=== PATIENT | female | born 1970 | race Caucasian/White ===

== ENCOUNTER → 2018-02-23 | Outpatient (CLI) | payer OTHER ==
[~2018-02-23] MED LIST: ASCO10004 PO; CALC-680 PO; CHOL2000 PO; LACT1CAP11 PO; METO25TA91 PO
== END | disposition home or self-care (01) ==
LOC: CARD 09:10
PROVIDERS: ATTEND Specialist
DX: G45.9 Transient cerebral ischemic attack, unspecified (principal)
CPT/HCPCS: 95816

== ENCOUNTER 2020-11-05 14:41 | Outpatient (CLI) | payer OTHER ==
[~2020-11-05 14:41] MED LIST changes: +ASCO100018 PO; -ASCO10004 PO
[2020-11-05 15:34] LABS: MICROSCOPIC NOT IND
[2020-11-05 15:35] LABS: BASOPHILS % (AUTO) 0 % (0-1); EOSINOPHILS % (AUTO) 1 % (1-7); LYMPHOCYTES % (AUTO) 18 % (22-44); MEAN CORPUSCULAR HGB CONC 33.3 g/dL (32.4-35.8); MEAN PLATELET VOLUME 9.9 fL (7.4-10.4); MONOCYTES % (AUTO) 7 % (2-9); NEUTROPHILS % (AUTO) 74 % (42-75); PLATELET COUNT 282 x10^3/uL (130-400); RED BLOOD COUNT 5.04 x10^6/uL (3.82-5.3); RED CELL DISTRIBUTION WIDTH 13.6 % (9.6-15.2)
[2020-11-05] MEDS ORDERED: Magnesium TP (15:46)
[2020-11-05] MEDS ORDERED: CYAN100072 INJ (15:46)
[2020-11-05] MEDS ORDERED: LIOT5TAB11 PO (15:46)
[2020-11-05] MEDS ORDERED: LEVO88TA4 PO (15:46)
[2020-11-05] MEDS ORDERED: ASPI81TA45 PO (15:46)
[2020-11-05 15:53] LABS: ANION GAP 6 mmol/L (5-15); BILIRUBIN,TOTAL 0.8 mg/dL (0.2-1.0); CALCIUM 9.2 mg/dL (8.5-10.1); CHLORIDE 107 mmol/L (98-107); CREATININE 1.01 mg/dL (0.55-1.02)
[2020-11-05 15:54] LABS: ALANINE AMINOTRANSFERASE 45 U/L (12-78); ALBUMIN 3.9 g/dL (3.4-5.0); ALKALINE PHOSPHATASE 87 U/L (45-117); TOTAL PROTEIN 7.5 g/dL (6.4-8.2)
== END 2020-11-05 23:59 | disposition home or self-care (01) ==
LOC: STAR 14:41
PROVIDERS: ATTEND Obstetrics & Gynecology
DX: Z01.818 Encounter for other preprocedural examination (principal); N84.0 Polyp of corpus uteri; N92.0 Excessive and frequent menstruation with regular cycle
CPT/HCPCS: 36415; 80053; 81003; 85025

== ENCOUNTER 2020-11-14 08:26 | Day surgery (SDC) | payer OTHER ==
[~2020-11-14] VITALS: Ht 165.1 cm; Wt 76.0 kg
[~2020-11-14 08:26] MED LIST changes: +ACETAMINOPHEN 325 MG TABLET PO PRN; +ASPI81TA45 PO; +CYAN100072 INJ; +EPHEDRINE 50 MG/ML, 1ML IVPush PRN; +FENTANYL PF 100 MCG/2ML IV PRN; +HYDROmorphone 1 MG/ML, 1ML INJ IVPush PRN; +LABETALOL 5MG/ML, 20ML IV PRN; +LEVO88TA4 PO; +LIOT5TAB11 PO; +MEPERIDINE/PF 25MG/0.5ML IVPush PRN; +Magnesium TP; +ONDANSETRON 2MG/ML, 2ML IVPush PRN; +OXYcodone 5 MG/5 ML ORAL.SOL UDC PO PRN; +PROMETHAZINE 25 MG/ML, 1ML IVPush PRN; +hydrALAzine 20 MG/ML, 1ML IV PRN
[2020-11-14 09:12] VITALS: BP 120/83
[2020-11-14] MEDS ORDERED: BUPIVACAINE/PF 0.25% ONE (09:12)
[2020-11-14] MEDS ORDERED: EPINEPHRINE 1 MG/ML, 1ML ONE (09:13)
[2020-11-14] MEDS ORDERED: SILVER NITRATE STICK TP ONE (09:13)
[2020-11-14 09:14] LABS: HCG UR SG 1.014 (1.003-1.030)
[2020-11-14] MEDS ORDERED: FENTANYL PF 100 MCG/2ML ONE ×2 (09:22→09:43)
[2020-11-14] MEDS ORDERED: MIDAZOLAM 1 MG/ML, 2ML ONE (09:22)
[2020-11-14 09:26] LABS: BASOPHILS % (AUTO) 0 % (0-1); EOSINOPHILS % (AUTO) 2 % (1-7); LYMPHOCYTES % (AUTO) 25 % (22-44); MEAN CORPUSCULAR HEMOGLOBIN 31.7 pg (27.0-34.8); MEAN CORPUSCULAR HGB CONC 34.2 g/dL (32.4-35.8); MEAN PLATELET VOLUME 9.4 fL (7.4-10.4); MONOCYTES % (AUTO) 9 % (2-9); NEUTROPHILS % (AUTO) 64 % (42-75); PLATELET COUNT 230 x10^3/uL (130-400); RED BLOOD COUNT 5.08 x10^6/uL (3.82-5.3); RED CELL DISTRIBUTION WIDTH 13.3 % (9.6-15.2)
[2020-11-14] MEDS ORDERED: ACETAMINOPHEN 500 MG TABLET PO ONE (09:30)
[2020-11-14] MEDS ORDERED: LACTATED RINGERS 1,000 ML IV SCH (09:30)
[2020-11-14] MEDS ORDERED: CHLORHEXIDINE 15 ML UDC PO ONE (09:30)
[2020-11-14] MEDS ORDERED: DEXAMETHASONE 4 MG/ML, 1ML ONE (09:43)
[2020-11-14] MEDS ORDERED: PROPOFOL 10 MG/ML, 20ML ONE (09:43)
[2020-11-14] MEDS ORDERED: ONDANSETRON 2MG/ML, 2ML ONE (09:43)
[2020-11-14] MEDS ORDERED: CEFAZOLIN 1,000 MG ONE (09:43)
== END 2020-11-14 12:40 | disposition home or self-care (01) ==
LOC: OUT 08:26
PROVIDERS: ATTEND Obstetrics & Gynecology
DX: N92.0 Excessive and frequent menstruation with regular cycle (principal); D25.0 Submucous leiomyoma of uterus; E06.3 Autoimmune thyroiditis; Z79.82 Long term (current) use of aspirin; Z79.890 Hormone replacement therapy; Z79.899 Other long term (current) drug therapy; Z87.442 Personal history of urinary calculi; Z88.8 Allergy status to other drugs, medicaments and biological substances
CPT/HCPCS: 36415; 58561; 81025; 85025; 88305; J0690; J1100; J2250; J2405; J2704; J3010; J7120; J0171